=== PATIENT | male | born 1940 | race Caucasian/White ===

== ENCOUNTER 2016-12-31 12:22 | Emergency (ER) | payer MEDICARE, BC ==
[~2016-12-31 12:22] MED LIST: ALDACTONE DPS25 MG PO; ASA CHILDREN'S81 MG PO; AVODART0.5 MG PO; CALCIUM 600 +1 EA12 PO; CORDARONE200 MG PO; COREG25 MG PO; COZAAR DPS50 MG PO; DELTASONE DPS1 MG PO; DESYREL-DPS50 MG PO; DUONEB DPS3 ML IH; ENTRESTO 24 MG1 EACH PO; EXELON1.5 MG PO; HUMALOG100 UNIT/1 SQ; LASIX DPS80 MG PO; LEVAQUIN DPS250 MG PO; LEVEMIR100 UNIT/1 SQ; LIPITOR40 MG PO; MICRO-K DPS10 MEQ PO; NORVASC5 MG PO; NOVOLOG100 UNIT/2 SQ; PEPCID DPS20 MG PO; PRAVACHOL20 MG PO; RISPERDAL1 MG PO; THERAPEUTIC MUL1 TAB PO; TRICOR48 MG PO; ZAROXOLYN5 MG PO; ZOLOFT DPS100 MG PO
[2017-01-19] MEDS ORDERED: COZAAR DPS50 MG PO (06:12)
[2017-01-19] MEDS ORDERED: LEVAQUIN DPS250 MG PO (06:14)
--- NOTE | 2017-01-19 11:50 | ER ---
ADMIT: 12/31/2016 RM/LOC: ER [facility] MR#: [id number] [id number] [place], [place] [id number] [address] [place] [address] Emergency Room Report SEX: M AGE: 76 : 1940 DATE: 12/31/2016 ADDENDUM: This patient comes to the ER because he has been constipated. He has not had a bowel movement for the last 2 to 3 days, and now, he is unable to pee. He has no vomiting or diarrhea. He has been able to eat and drink normally. On physical exam, his abdomen is tender right above the pubic symphysis. He does have active bowel sounds. KUB was negative for obstruction. We did do a bladder ultrasound, which showed 300 in his bladder. We placed a quick Arriaga catheter, and he had no pain. Once the urine was removed from his bladder, he passed some gas and felt quite a bit better. He was given milk of magnesia in the ER. He should go home and do milk of magnesia at home. Follow up with his primary in the next couple of days if he is having any increased pain. If he is unable to urinate, he should return to the ER. Please see my T- sheet. HARSHAD Angulo / Dioni Mendes MD / modl JOB #: [id number] CC: Dioni Mendes MD, Attending Physician Ayden Baird MD, Family Physician
[2017-05-12] MEDS ORDERED: LANTUS100 UNITS/ SQ (11:54)
[2017-05-12] MEDS ORDERED: CLARITIN DPS10 MG PO (12:01)
[2017-05-12] MEDS ORDERED: VISION FORMULA PO (12:02)
[2017-05-12] MEDS ORDERED: ZANTAC DPS150 MG PO (12:02)
[2017-05-12] MEDS ORDERED: DUONEB DPS3 ML IH (12:03)
[2017-05-12] MEDS ORDERED: COLACE-DPS100 MG PO (12:04)
[2017-05-12] MEDS ORDERED: MAALOX DPS30 ML PO (12:04)
[2017-05-12] MEDS ORDERED: GLUTOSE 1537.5 GM PO (12:04)
[2017-05-12] MEDS ORDERED: ATIVAN-DPS0.5 MG PO (12:04)
[2017-05-12] MEDS ORDERED: NITROSTAT0.4 MG SL (12:05)
[2017-05-12] MEDS ORDERED: TYLENOL325 MG PO (12:05)
[2017-05-12] MEDS ORDERED: GLUCAGON HCL1 MG IM (12:05)
== END 2016-12-31 16:55 | disposition home or self-care (01) ==
LOC: ER 12:22
DX: K59.00 Constipation, unspecified (principal); E11.9 Type 2 diabetes mellitus without complications; I10 Essential (primary) hypertension; Z79.4 Long term (current) use of insulin; Z79.82 Long term (current) use of aspirin; Z79.899 Other long term (current) drug therapy

== ENCOUNTER 2017-01-13 21:13 | Inpatient (IN) | payer MEDICARE, BC ==
[2017-01-19] MEDS ORDERED: COZAAR DPS50 MG PO (06:12)
[2017-01-19] MEDS ORDERED: LEVAQUIN DPS250 MG PO (06:14)
[2017-05-12] MEDS ORDERED: LANTUS100 UNITS/ SQ (11:54)
[2017-05-12] MEDS ORDERED: CLARITIN DPS10 MG PO (12:01)
[2017-05-12] MEDS ORDERED: VISION FORMULA PO (12:02)
[2017-05-12] MEDS ORDERED: ZANTAC DPS150 MG PO (12:02)
[2017-05-12] MEDS ORDERED: DUONEB DPS3 ML IH (12:03)
[2017-05-12] MEDS ORDERED: ATIVAN-DPS0.5 MG PO (12:04)
[2017-05-12] MEDS ORDERED: MAALOX DPS30 ML PO (12:04)
[2017-05-12] MEDS ORDERED: GLUTOSE 1537.5 GM PO (12:04)
[2017-05-12] MEDS ORDERED: COLACE-DPS100 MG PO (12:04)
[2017-05-12] MEDS ORDERED: TYLENOL325 MG PO (12:05)
[2017-05-12] MEDS ORDERED: NITROSTAT0.4 MG SL (12:05)
[2017-05-12] MEDS ORDERED: GLUCAGON HCL1 MG IM (12:05)
== END 2017-01-17 14:50 | DRG 190 ==
DX: J44.0 Chronic obstructive pulmonary disease with (acute) lower respiratory infection (principal); J18.9 Pneumonia, unspecified organism; Z99.81 Dependence on supplemental oxygen; G31.83 Neurocognitive disorder with Lewy bodies; I25.5 Ischemic cardiomyopathy; I25.10 Atherosclerotic heart disease of native coronary artery without angina pectoris; R09.02 Hypoxemia; F02.80 Dementia in other diseases classified elsewhere, unspecified severity, without behavioral disturbance, psychotic disturbance, mood disturbance, and anxiety; E11.9 Type 2 diabetes mellitus without complications; J44.1 Chronic obstructive pulmonary disease with (acute) exacerbation; N18.9 Chronic kidney disease, unspecified; I12.9 Hypertensive chronic kidney disease with stage 1 through stage 4 chronic kidney disease, or unspecified chronic kidney disease; E78.5 Hyperlipidemia, unspecified; K21.9 Gastro-esophageal reflux disease without esophagitis; F32.9 Major depressive disorder, single episode, unspecified; N40.0 Benign prostatic hyperplasia without lower urinary tract symptoms; Z86.73 Personal history of transient ischemic attack (TIA), and cerebral infarction without residual deficits; Z85.51 Personal history of malignant neoplasm of bladder; Z79.82 Long term (current) use of aspirin; Z95.0 Presence of cardiac pacemaker; Z79.4 Long term (current) use of insulin; Z95.5 Presence of coronary angioplasty implant and graft; Z95.1 Presence of aortocoronary bypass graft; Z87.891 Personal history of nicotine dependence; Z66 Do not resuscitate